=== PATIENT | female | born 1985 | race Asian ===

== ENCOUNTER 2022-01-03 16:46 | Inpatient (IN) | payer MEDICAID, OTHER ==
[~2022-01-03] VITALS: Ht 165.1 cm; Wt 72.2 kg
[~2022-01-03 16:46] MED LIST: NOCURR
[2022-01-03 19:22] LABS: BASOPHILS % (AUTO) 0.2 % (0.0-2.0); HEMATOCRIT 42.1 % (36-46); HEMOGLOBIN 14.6 g/dL (12.0-16.0); LYMPHOCYTES % (AUTO) 7.9 % (22.0-44.0); MEAN CORPUSCULAR HEMOGLOBIN 32.9 pg (26.0-34.0); MEAN CORPUSCULAR HGB CONC 34.7 G/dL (31.0-37.0); MEAN CORPUSCULAR VOLUME 95 fL (80-100); MONOCYTES # (AUTO) 0.6 K/uL (0.1-1.0); MONOCYTES % (AUTO) 4.7 % (2.0-9.0); NEUTROPHILS # (AUTO) 10.3 K/uL (1.8-7.7); PLATELET COUNT (AUTO) 334 K/uL (150-450); RED BLOOD CELL COUNT(AUTO) 4.44 MIL/uL (4.00-5.20); RED CELL DISTRIBUTION WIDTH 12.8 % (11.5-14.5)
[2022-01-03 19:24] LABS: NEUTROPHILS % (AUTO) 85.2 % (40.0-70.0)
[2022-01-03 19:31] LABS: ANION GAP 14 mmol/L (8-16); CALCIUM, TOTAL 9.7 mg/dL (8.8-10.5); CARBON DIOXIDE 26 mmol/L (22-29); CHLORIDE 95 mmol/L (98-107); CREATININE 0.85 mg/dL (0.60-1.30); GLOMERULAR FILTR. RATE CALC > 60 mL/min (>60); GLUCOSE,RANDOM 103 mg/dL (70-110); POTASSIUM 3.2 mmol/L (3.5-5.1); SODIUM SERUM 135 mmol/L (136-145); UREA NITROGEN, BLOOD 9 mg/dL (7-18)
[2022-01-03 19:34] LABS: COVID AG,FIA SOURCE NASOPHARYNGEAL
[2022-01-03 19:42] LABS: HCG,QUANTITATIVE < 1 mIU/mL (0-6)
[2022-01-03 20:01] LABS: INFLUENZA TYPE A NEGATIVE FOR TYPE A (NEGATIVE); INFLUENZA TYPE B NEGATIVE FOR TYPE B (NEGATIVE)
[2022-01-03] MEDS ORDERED: POTASSIUM CHLORIDE 20 MEQ ER TABLET PO ONE (20:30)
[2022-01-03] MEDS ORDERED: IBUP-2070 PO (21:13)
[2022-01-03] MEDS ORDERED: KETOROLAC TROMETHAMINE 30 MG/ML VIAL IM ONE (21:15)
[2022-01-03] MEDS ORDERED: SODIUM CHLORIDE 0.9% 2,200 ML IV ONE (21:45)
[2022-01-03] MEDS ORDERED: ACETAMINOPHEN 500 MG TABLET PO ONE (21:45)
[2022-01-03 21:50] LABS: APPEARANCE,URINE CLEAR (CLEAR); BILIRUBIN,URINE NEGATIVE (NEGATIVE); GLUCOSE, URINE (UA) NEGATIVE (NEGATIVE); KETONES,URINE 40-60 mg/dL (NEGATIVE); LEUKOCYTE ESTERASE ,URINE LARGE Leu/uL (NEGATIVE); NITRATE,URINE NEGATIVE (NEGATIVE); OCCULT BLOOD,URINE NEGATIVE (NEGATIVE); PROTEIN,URINE TRACE (NEGATIVE); SPECIFIC GRAVITIY, URINE 1.024 (1.003-1.030); UROBILINOGEN,URINE <=1.0 mg/dL (<=1.0)
[2022-01-03 22:01] LABS: AMORPHOUS SEDIMENT,UR Few /LPF (None Seen); BACTERIA,URINE None Seen /HPF (None Seen); RBC,URINE 0-2 /HPF (0-2); SQUAMOUS EPITHELIAL CELL,UR Few /LPF (None Seen)
[2022-01-03] MEDS ORDERED: CefTRIAXone 1 GM/DEXTROSE 50 ML IV ONE (22:15)
[2022-01-03] MEDS ORDERED: ACETAMINOPHEN 325 MG TABLET PO PRN (23:15)
[2022-01-03] MEDS ORDERED: 0.9% SODIUM CHLORIDE 10 ML SYRINGE IVP PRN (23:15)
[2022-01-03] MEDS ORDERED: ONDANSETRON HCL 4 MG/2 ML VIAL IVP PRN (23:15)
[2022-01-04] MEDS: RINGERS SOLUTION,LACTATED 1,000 ML IV SCH ×3 (00:15→23:48)
[2022-01-04] MEDS ORDERED: ONDANSETRON HCL 4 MG/2 ML VIAL IVP PRN (00:15)
[2022-01-04 01:36] VITALS: BP 107/69
[2022-01-04 04:38] VITALS: BP 106/76
[2022-01-04] MEDS: CefTAZidime PENTAHYDRATE 1 GM in DEXTROSE 5%-WATER 50 ML IV SCH ×3 (04:44→20:02)
[2022-01-04 07:08] VITALS: BP 100/70
[2022-01-04] MEDS: HEPARIN SODIUM,PORCINE 5,000 UNITS/ML VIAL SQ SCH ×3 (08:33→23:47)
[2022-01-04] MEDS ORDERED: HYDR25TA2 PO (11:18)
[2022-01-04] MEDS ORDERED: PROP10TA10 PO (11:18)
[2022-01-04 11:26] VITALS: BP 126/78
[2022-01-04 16:31] VITALS: BP 115/77
[2022-01-04] MEDS: ACETAMINOPHEN 325 MG TABLET PO PRN ×2 (20:01→23:52)
[2022-01-04 20:50] VITALS: BP 121/88
[2022-01-05] MEDS: DiphenhydrAMINE HCL 25 MG CAPSULE PO PRN ×2 (00:32→09:08)
[2022-01-05 00:35] VITALS: BP 112/78
[2022-01-05] MEDS: CefTAZidime PENTAHYDRATE 1 GM in DEXTROSE 5%-WATER 50 ML IV SCH ×3 (03:37→21:07)
[2022-01-05 04:23] VITALS: BP 102/67
[2022-01-05 06:00] LABS: BASOPHILS % (AUTO) 0.3 % (0.0-2.0); EOSINOPHILS % (AUTO) 5.4 % (1.0-6.0); HEMATOCRIT 35.7 % (36-46); HEMOGLOBIN 12.2 g/dL (12.0-16.0); LYMPHOCYTES # (AUTO) 3.5 K/uL (1.0-4.8); LYMPHOCYTES % (AUTO) 42.8 % (22.0-44.0); MEAN CORPUSCULAR HEMOGLOBIN 33.2 pg (26.0-34.0); MEAN CORPUSCULAR HGB CONC 34.3 G/dL (31.0-37.0); MEAN CORPUSCULAR VOLUME 97 fL (80-100); MONOCYTES # (AUTO) 0.8 K/uL (0.1-1.0); MONOCYTES % (AUTO) 9.8 % (2.0-9.0); NEUTROPHILS # (AUTO) 3.4 K/uL (1.8-7.7); NEUTROPHILS % (AUTO) 41.7 % (40.0-70.0); PLATELET COUNT (AUTO) 278 K/uL (150-450); RED BLOOD CELL COUNT(AUTO) 3.68 MIL/uL (4.00-5.20); RED CELL DISTRIBUTION WIDTH 13.5 % (11.5-14.5)
[2022-01-05] MEDS: RINGERS SOLUTION,LACTATED 1,000 ML IV SCH ×3 (06:14→23:10)
[2022-01-05 06:19] LABS: ANION GAP 6 mmol/L (8-16); CALCIUM, TOTAL 7.9 mg/dL (8.8-10.5); CARBON DIOXIDE 25 mmol/L (22-29); CHLORIDE 108 mmol/L (98-107); CREATININE 0.58 mg/dL (0.60-1.30); GLUCOSE,RANDOM 114 mg/dL (70-110); SODIUM SERUM 139 mmol/L (136-145); UREA NITROGEN, BLOOD 10 mg/dL (7-18)
[2022-01-05 06:21] LABS: GLOMERULAR FILTR. RATE CALC > 60 mL/min (>60)
[2022-01-05 08:19] VITALS: BP 110/72
[2022-01-05] MEDS: HEPARIN SODIUM,PORCINE 5,000 UNITS/ML VIAL SQ SCH ×2 (09:10→16:22)
[2022-01-05 11:46] VITALS: BP 125/85
[2022-01-05] MEDS: ACETAMINOPHEN 325 MG TABLET PO PRN (12:18)
[2022-01-05 16:00] VITALS: BP 112/66
[2022-01-05] MEDS ORDERED: FLUCONAZOLE 150 MG TABLET PO ONE (16:15)
[2022-01-05] MEDS ORDERED: POTASSIUM CHLORIDE 20 MEQ ER TABLET PO ONE (19:15)
[2022-01-05 19:30] VITALS: BP 112/71
[2022-01-06] MEDS: HEPARIN SODIUM,PORCINE 5,000 UNITS/ML VIAL SQ SCH ×2 (00:09→08:13)
[2022-01-06 04:49] VITALS: BP 112/69
[2022-01-06] MEDS: CefTAZidime PENTAHYDRATE 1 GM in DEXTROSE 5%-WATER 50 ML IV SCH ×2 (05:15→12:32)
[2022-01-06 08:00] VITALS: BP 135/84
[2022-01-06] MEDS: RINGERS SOLUTION,LACTATED 1,000 ML IV SCH (08:14)
[2022-01-06] MEDS ORDERED: CEPH500C3 PO (14:12)
[2022-01-06] MEDS ORDERED: FLUC150T55 PO (14:12)
[2022-01-08] MEDS ORDERED: FLUCONAZOLE 150 MG TABLET PO SCH (09:00)
== END 2022-01-06 15:15 | disposition home or self-care (01) | DRG 720 ==
LOC: EMS 17:09 → 6S 01-04 00:01 → UNDOADMIN 01-04 00:01 → 5N 01-04 00:01 → 6N 01-05 18:45
PROVIDERS: ADMIT Internal Medicine; ATTEND Internal Medicine
DX: A41.9 Sepsis, unspecified organism (principal); E87.6 Hypokalemia; N10 Acute pyelonephritis; N92.6 Irregular menstruation, unspecified; F41.9 Anxiety disorder, unspecified; Z20.822 Contact with and (suspected) exposure to COVID-19; F15.90 Other stimulant use, unspecified, uncomplicated; F17.200 Nicotine dependence, unspecified, uncomplicated; Z88.0 Allergy status to penicillin; Z90.49 Acquired absence of other specified parts of digestive tract; Z98.891 History of uterine scar from previous surgery
CPT/HCPCS: 71045; 74177; 80048; 81001; 83605; 83735; 84484; 84702; 85025; 85379; 87040; 87086; 87804; 93005; 99285; J0696; J0713; J1644; J1885; J7030; J7060; J7120; 36415-L1; 36415-TC